=== PATIENT | female | born 1995 | race Asian ===

== ENCOUNTER → 2023-11-17 13:33 | Outpatient (REF) | payer BC, SELFPAY | LOC: PNTC 13:33 | PROVIDERS: ATTENDING PHYSICIAN Advanced Practice Midwife | DX: O46.92 Antepartum hemorrhage, unspecified, second trimester (principal); O99.210 Obesity complicating pregnancy, unspecified trimester; O99.320 Drug use complicating pregnancy, unspecified trimester | CPT/HCPCS: 76816 ==